=== PATIENT | male | born 1970 | race Caucasian/White ===

== ENCOUNTER → 2018-12-22 | Emergency (ER) | payer OTHER ==
[~2018-12-22] VITALS: Ht 162.6 cm; Wt 89.8 kg
[~2018-12-22] MED LIST: HYDROcodone/ACETAMIN 5-325 MG TAB (NORCO/ VICODIN) PO ONE; LIDOCAINE 1% 10 MG/ML, 20 ML MDV INJ ONE; ONDANSETRON 4 MG ODT TAB PO ONE
[2018-12-22 21:20] VITALS: BP_SYST 136
--- NOTE | 2018-12-22 21:22 | NUR ---
Patient triaged and placed in waiting room. VSS and patient appears in no acute distress at this time. Accompanied by son, awaiting available bed, and MD notified of need for MSE.
--- NOTE | 2018-12-22 22:18 | NUR ---
Pt ambulatory to bed 8 for evaluation
--- NOTE | 2018-12-22 22:30 | NUR ---
Pt came to the ED for laceration to L thumb. Pt cut his finger while doing work at home with a hack saw. Currently bleeding is controlled. Pain is 7/10. Denies n/v/d or fever. No other complaints/injuries noted at this time. WIll cont. to monitor.
--- NOTE | 2018-12-22 23:30 | NUR ---
Dr. Foster at bedside for suture procedure.
--- NOTE | 2018-12-22 23:30 | NUR ---
Note undone in EDM - 12/23/18 at 0736 by [email or web address] Pt came to the ED for laceration to L thumb. Pt cut his finger while doing work at home with a hack saw. Currently bleeding is controlled. Pain is 7/10. Denies n/v/d or fever. No other complaints/injuries noted at this time. WIll cont. to monitor.
--- NOTE | 2018-12-22 23:44 | NUR ---
Patient given written and verbal discharge instructions and verbalizes understanding. ER MD Dr. Foster discussed with patient the results and treatment provided. Patient in stable condition. ID arm band removed. Rx of norco and zofran given. Patient educated on pain management and to follow up with PMD. Pain Scale 0/10. Opportunity for questions provided and answered. Medication side effect fact sheet provided.
== END | disposition still patient (30) ==
LOC: SED 21:04
DX: S61.012A Laceration without foreign body of left thumb without damage to nail, initial encounter (principal); W26.8XXA Contact with other sharp object(s), not elsewhere classified, initial encounter; Y93.89 Activity, other specified; Y92.009 Unspecified place in unspecified non-institutional (private) residence as the place of occurrence of the external cause; Y99.8 Other external cause status
CPT/HCPCS: 12002; 99283; Q0162

== ENCOUNTER 2022-01-16 13:21 | Emergency (ER) | payer BC, OTHER ==
[~2022-01-16] VITALS: Ht 162.6 cm; Wt 83.9 kg
--- NOTE | 2022-01-16 14:30 | NUR ---
PT TRIAGED AND PLACE IN WAITING ROOM
[2022-01-16 14:38] VITALS: BP_SYST 109
[2022-01-16] MEDS ORDERED: HYDR-3917 PO (14:39)
[2022-01-16] MEDS ORDERED: IBUP-1971 PO (14:39)
--- NOTE | 2022-01-16 15:00 | NUR ---
XRAY COMPLETED. DR. MANCILLA IN WAITING ROOM TO ASSESS PT.
--- NOTE | 2022-01-16 15:40 | NUR ---
PLACED FOOT IN WALKING BOOT. PT STATES HE HAS CRUTCHES AT HOME.
[2022-01-16] MEDS ORDERED: LIDOCAINE 1%, 20 ML MDV 20 ML ONE (16:02)
--- NOTE | 2022-01-16 16:11 | NUR ---
Patient given written and verbal discharge instructions and verbalizes understanding. ER MD discussed with patient the results and treatment provided. Patient in stable condition. ID arm band removed. Rx of IBUPROPEN, NORCO given. Patient educated on pain management and to follow up with PMD. Pain Scale 3/10. Opportunity for questions provided and answered. Medication side effect fact sheet provided.
[2022-01-16 16:12] VITALS: BP_SYST 111
== END 2022-01-16 16:11 | disposition home or self-care (01) ==
LOC: SED 13:21
DX: S92.422A Displaced fracture of distal phalanx of left great toe, initial encounter for closed fracture (principal); Z79.899 Other long term (current) drug therapy; W19.XXXA Unspecified fall, initial encounter; Y93.89 Activity, other specified; Y92.89 Other specified places as the place of occurrence of the external cause; Y99.8 Other external cause status
CPT/HCPCS: 99283; 73660; J2001